=== PATIENT | female | born 1955 | race Caucasian/White ===

== ENCOUNTER 2025-06-02 14:27 | Outpatient (AMB) | payer OTHER, SELFPAY ==
--- OUTSIDE RECORDS SUMMARY | 2024-10-22 11:13 | XMS_ITS ---
Author Organization - [facility] Address [address] [place] [address] Care Team Providers Care Farmworker [employer] Name Role Phone Olivia Hussein Unavailable [phone] REASON FOR VISIT *Care Plan Update Encounters Encounter Location Date Provider Diagnosis - [facility] [address] [facility] [address] [place] [address] 10/22/2024 Olivia Hussein Plan Of Treatment No Information Progress Notes * Shea AYALAJaimeeB: 6 (69 yo F)Acc No.[id number]:10/22/2024 Care Plan Update Patient: Xin TREJO Provider: Shreya Hussein NP :1955 A ge:69 Y S ex:Female Date:10/22/2024 Address:[address] [place], [place] [id number] Subjective: * Chief Complaints: * 1 . *Care Plan Update. * Medical History: Objective: * Vitals: Assessment: Plan: * Treatment: Care Plan: * Problems: * Billing Information: Care Plan Details* * * Electronic signature of Beto Hussein NP on 06/02/2025 at 06:46 PM EST Sign off status: Pending * Provider: Shreya Hussein NP Date: 0 10/22/2024 Generated for Omer regan/Kori/[employer]gen on: 08/03/2024 06:46 PM EST
--- NOTE | 2025-06-02 14:47 | MHC.OFFVIS ---
Intake Visit Reasons: Meningioma Allergies amoxicillin Allergy (Unknown, Verified 06/02/25 15:05) Unknown bupropion (From Wellbutrin) Allergy (Unknown, Verified 06/02/25 15:05) Unknown levofloxacin (From Levaquin) Allergy (Unknown, Verified 06/02/25 15:05) Unknown oxybutynin Allergy (Unknown, Verified 06/02/25 15:05) Unknown paclitaxel (From Taxol) Allergy (Unknown, Verified 06/02/25 15:05) Unknown HPI Comments Details: The patient is a 69 year old female presenting for a new patient neurology consultation for evaluation of memory problems. She reports the onset of memory issues a few years ago, which she feels may have started worsening after her meningioma surgery. She describes difficulty with short-term memory, such as forgetting the purpose of an action, and occasional word-finding difficulties. 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 The patient has a history of a meningioma, for which she underwent a craniotomy years ago at [facility]. She recalls having some transient memory and speech difficulties post-operatively which improved. A recent brain MRI was performed at [facility] to monitor for recurrence, but the imaging report is not available for review. Her other medical history includes migraines. The patient is establishing care due to her previous neurologist's halfway and staffing shortages at the prior clinic. She denies any alcohol use for years. She also reports using oxygen at times. Review of Systems Narrative Constitutional:?No fever, chills, fatigue, weight loss, or night sweats. HEENT:? Complain of sinus problems Cardiovascular:?No chest pain, palpitations, orthopnea, PND, or leg swelling. Respiratory:? Complain of shortness of breath Gastrointestinal:?No nausea, vomiting, abdominal pain, diarrhea, or constipation. Genitourinary:? Complain of urinary frequency. Musculoskeletal:? Complain of back pain neck pain and joint pains Neurological:? Complain of difficulty walking, weakness, numbness and tingling, memory problems, headaches and dizziness. Psychiatric:?No anxiety, depression, mood swings, sleep disturbance, or hallucinations. Endocrine:?No heat/cold intolerance, polydipsia, polyuria, or hair/skin changes. Hematologic/Lymphatic:?No easy bruising, bleeding, or lymphadenopathy. Integumentary (Skin):?No rash, lesions, itching, or color changes. Allergic/Immunologic:?No seasonal allergies, hives, or recurrent infections. Physical Exam Neuro Other: Mental Status: Alert and oriented to person, place, and time. Normal attention. Normal spontaneous speech, fluency, and comprehension. Cranial Nerves: CN II: Visual serna full to confrontation, visual acuity intact. CN III, IV, : Pupils equal, round, reactive to light and accommodation. Extraocular movements are normal. CN V: Facial sensation is normal. CN VII: Facial movements symmetrical. CN VIII: Hearing intact to bedside conversation is normal. CN IX, X: Palate elevates symmetrically. CN XI: Shoulder shrug and head turn symmetrical. CN XII: Tongue midline without atrophy or fasciculations. Motor: Bulk and tone normal in all extremities. No significant muscle weakness in arms and legs. No drift. Reflexes: Deep tendon reflexes 2+ and symmetric. Plantar response down-going bilaterally. Coordination: Nacyyg-ku-hlid and jmqr-nm-ldlz testing normal. No dysmetria. Gait and Station: No obvious gait abnormality. No ataxia or instability. Sensory: Intact to light touch, pinprick, and vibration. Romberg is negative. Extrapyramidal: Full facial expressions and blinking. No rigidity. Movements are appropriate with no tremor or abnormality. Speech: Normal; no dysarthria or tremor. Assessment & Plan Assessment & Plan (1) Meningioma: Code(s): D32.9 - Benign neoplasm of meninges, unspecified Category: Medical (2) Cognitive dysfunction: Code(s): F09 - Unspecified mental disorder due to known physiological condition Category: Medical Plan Impression: a: Reported h/o cerebral meningioma treated with craniotomy years ago b: Cognitive dysfunction during recent years c: She had an MRI done recently but did not bring the CD and no report was sent Rec: a: Try to get MRI CD b: EEG c: Labs I have discussed with the patient the plan to evaluate her memory concerns. I informed her that we would order blood tests and an EEG, and that a follow-up appointment would be scheduled after these are completed. I emphasized the importance of her obtaining the CD of her recent brain MRI from [facility] to bring to the next visit for review. In response to her concerns about accessibility, I informed her of the availability of granite worker parking. Orders: Orders Lyme IgG/IgM w/reflex to WB Today F09 - Unspecified mental disorder due to known physiological condition Vitamin B12 and Folate Today F09 - Unspecified mental disorder due to known physiological condition EEG Routine Today G40.909 - Epilepsy, unspecified, not intractable, without status epilepticus Coding Level of Care Code New Pt Level 4 (03986) Diagnoses Meningioma D32.9 Cognitive dysfunction F09
--- OUTSIDE RECORDS SUMMARY | 2025-06-02 18:45 | XMS_ITS | Encounter Summary ---
Author Organization [employer] Address [address] [place] [address] Care Team Providers Care Or First Assist Registered Nurse Name Role Phone Helen Chenline Unavailable Unavailable Ameena Tellez DO Primary Care Provider [phone] Encounter Details Date Type Department Care Team (Late st Contact Info) Description 01/18/2025 Orders Only [facility] [address] [place] [address] Ameena Tellez DO [address] [place] [address] Social History Tobacco Use Types Packs/Day Years Used Date Smoking Tobacco: Former Cigarettes 1 996 - 02/25/2022 Passive Smoke Exposure: Past Smokeless Tobacco: Never Comments:Smoked a 1/2 a pack to a pack a day Alcohol Use Standard Drinks/Week Comments Never 0 (1 standard drink = 0.6 oz pur e alcohol) Alcohol Answer Date Recorded How often do you have a drink containing alcohol ? 0 01/13/2025 Average Number of Drinks Not on file 025 How often do you have six or more drinks on one occasion? 0 01/13/2025 Depression Answer Date Recorded Patient Health Questionnaire-9 Score 0 01/13/2025 Patient Health Questionnaire-9 Score 0 01/13/2025 Last PHQ-9: Questionnaire Data Not on file 0 01/13/2025 Housing Stability Answer Date Recorded What is your housing situation today? I have nava hackett 04/02/[address] you li ve. Do you have problems with any of the following? None of the above 04/02/2023 Food Insecurity Answer Date Recorded Within the past 12 months, y ou worried that your food would run out before you got money to buy more: Often true 2024 Within the past 12 months,th e food you bought just didn't last and you didn't have enough money to get more: Sometimes True 01/13/2025 Transportation Answer Date Recorded In the past 12 months, has l ack of transportation kept you from medical appts, meetings, work or from getting things needed for daily living? No 02/07/2024 Intimate Partner Violence Answer Date R ecorded Within the last year, have y ou been afraid of your partner or ex-partner? 2 02/07/2024 Within the last year, have y ou been humiliated or emotionally abused in other ways by your partner or ex-partner? 2 Within the last year, have y ou been kicked, hit, slapped, or otherwise physically hurt by your partner or ex-partner? 2 02/07/2024 Within the last year, have y ou been raped or forced to have any kind of sexual activity by your partner or ex-partner? 2 02/07/2024 Utilities Answer Date Recorded In the past 12 months, has t he electric, gas, oil or water company threatened to shut off services in your home? No 04/02/2023 Depression Answer Date Recorded Patient Health Questionnaire-2 Score 0 01/13/2025 Internet Access Answer Date Recorded Internet Access Q1 Yes 02/18/2024 Internet Access Q2 Not on file 02/18/2024 Education Answer Date Recorded What is the highest level of school you have completed or the highest degree you have received? Some college, no degree 11/05/2023 Comments No Sex and Gender Information Value Date Recorded Sex Assigned at Female 05/29/2022 3:31 PM EST Legal Sex Female 5:34 PM EDT Gender Identity Female 05/30/2022 3:11 PM EST Sexual Orientation Straight 05/29/2022 3: 31 PM EST Occupation Industry Job Start Date Job End Date retired/disabled Not on file Not on file Not on file documented as of this encounter Plan of Treatment Upcoming Encounters Date Type Department Care Team (Late st Contact Info) Description 07/13/2025 3:15 PM EST Office Visit [facility] MEDICAL [address] [place], [place] [id number] Ameena Tellez, DO [address] [place] [address] documented as of this encounter Procedures Procedure Name Priority Date/Time Associated Diagnosis Comments BD DEXA AXIAL Routine 01/20/2025 2:30 PM EDT MRI LUMBAR SPINE WO CONTRAST Routine 10/20/2021 1:01 PM EDT MRI CERVICAL SPINE WO CONTRAST Routine 04/27/2020 1:02 PM EST documented in this encounter Results * BD DEXA Axial (01/20/2025 2:30 PM EDT) Anatomical Region Laterality Modality Body Radiographic Layla ging 01/20/2025 2:30 PM EDT Narrative 02/01/2025 7:40 AM EDT Name:VON QUINTANILLA Age:69 years Sex:Female Ethnicity:White Date of :1955 Reason: M85.80 OSTEOPENIA UNSPECIFIED INCLUDE RIGHT HIP; Clinical Question(s): Other: Referring Provider:Ameena Tellez Study:Dexa Bone Density (Axial) Bone Density: Region BMD T-Score Z-Score Classification AP Spine 0.946 -0.3 1.6 Normal TOTAL HIP 0.723 -1.8 -0.4 Osteopenia FEM NECK 0.633 -1.9 -0.2 Osteopenia 1/3 Forearm 0.618 -1.3 0.7 Osteopenia 10-year Fracture Risk: Fracture Risk Not Reported: FRAX not reported because: Treated for osteoporosis RATE OF CHANGE(SPINE): BMD values have decreased 3.5% from previous BMD values have decreased 7.7% from baseline Impression: The patient has osteopenia as determined by WHO criteria. WSN: [id number] Ordering Physician: Ameena Tellez Dictated By: Gerry Lezama MD Dictated Date/Time: 02/01/25 7:36 am Reviewed By: Gerry Lezama MD Signed By: Gerry Lezama MD Signed Date/Time: 02/01/25 7:36 am Transcribed By: MAGEN Transcribed Date/Time: 02/01/25 7:35 am Procedure Note Donotuseinterpreter, Image - 02/01/2025 Name:VON QUINTANILLA Age:69 years Sex:Female Ethnicity:White Date of :1955 Reason: M85.80 OSTEOPENIA UNSPECIFIED INCLUDE RIGHT HIP; ClinicalQuestion(s): Other: Referring Provider:Ameena Tellez Study:Dexa Bone Density (Axial) Bone Density: Region BMD T-Score Z-Score Classification AP Spine 0.946 -0.3 1.6 Normal TOTAL HIP 0.723 -1.8 -0.4 Osteopenia FEM NECK 0.633 -1.9 -0.2 Osteopenia 1/3 Forearm 0.618 -1.3 0.7 Osteopenia 10-year Fracture Risk: Fracture Risk Not Reported: FRAX not reported because: Treated for osteoporosis RATE OF CHANGE(SPINE): BMD values have decreased 3.5% from previous BMD values have decreased 7.7% from baseline Impression: The patient has osteopenia as determined by WHO criteria. WSN: [id number] Ordering Physician: Ameena Tellez Dictated By: Gerry Lezama MD Dictated Date/Time: 02/01/25 7:36 am Reviewed By: Gerry Lezama MD Signed By: Gerry Lezama MD Signed Date/Time: 02/01/25 7:36 am Transcribed By: MAGEN Transcribed Date/Time: 02/01/25 7:35 am us Ameena Tellez DO IMG DXA PROCEDURES Final Resul t * MRI LUMBAR SPINE WO CONTRAST (10/20/2021 1:01 PM EDT) Anatomical Region Laterality Modality Magnetic Resonan ce us Ameena Tellez DO IMG MRI PROCEDURES Final Resul t * MRI CERVICAL SPINE WO CONTRAST (04/27/2020 1:02 PM EST) Anatomical Region Laterality Modality Magnetic Resonan ce us Ameena Tellez DO IMG MRI PROCEDURES Final Resul t documented in this encounter Visit Diagnoses Not on filedocumented in this encounter Additional Health Concerns Assessment Noted Time PHQ-9 Depression Total Score: 0 01/14/20 25 4:04 PM EDT documented as of this encounter Care Teams Or First Assist Registered Nurse Relationship Specialty Start Date End Date Ameena Tellez DO [address] [place] [address] PCP - General Family Medicine 02/07/24 Ivelisse Chen Community Health Worker 10/23/22 documented as of this encounter
--- OUTSIDE RECORDS SUMMARY | 2025-06-02 18:45 | XMS_ITS | Encounter Summary ---
Author Organization [employer] Address [address] [place] [address] Care Team Providers Care Dairy Inspector Name Role Phone Ivelisse Chen Unavailable Unavailable King Ameena Primary Care Provider [phone] Encounter Details Date Type Department Care Team (Late st Contact Info) Description 03/13/2024 Orders Only [place] [facility] MEDICAL [address] [place] [address] Gisela Pulido FNP Palpitations Social History Tobacco Use Types Packs/Day Years [...] have a drink containing alcohol ? 0 02/07/2024 How many drinks containing a lcohol do you have on a typical day when you are drinking? 0 02/07/2024 How often do you have six or more drinks on one occasion? 0 02/07/2024 Housing Stability Answer Date Recorded What is your housing situation today? I have nava hackett 04/02/[address] you li ve. Do you have problems with any of the following? None of the above 04/02/2023 Food Insecurity Answer Date Recorded Within the past 12 months, y ou worried that your food would run out before you got money to buy more: Never True 02/07/2024 Within the past 12 months,th e food you bought just didn't last and you didn't have enough money to get more: Never True Transportation Answer Date Recorded In the past [...] Date Recorded Patient Health Questionnaire-2 Score 0 02/07/2024 Internet Access Answer Date Recorded Internet Access [...] Description 07/13/2025 3:15 PM EST Office Visit [place] [facility] MEDICAL [address] [place] [address] Ameena Tellez DO [address] [place] [address] documented as of this encounter Procedures Procedure Name Priority Date/Time Associated Diagnosis Comments TRANSTHORACIC ECHO (TTE) COMPLETE Routine 024 Palpitations HOLTER MONITOR - 72 HOUR Routine 01/18/2024 Palpitations documented in this encounter Results * Transthoracic Echo (TTE) Complete (04/01/2024) [facility] CV ECHO PROCEDURES Fin al Result * Holter monitor - 72 hour (01/18/2024) [facility] CV CARDIAC SERVICES MT OCEDURES Final Result documented in this encounter Visit Diagnoses Diagnosis Palpitations documented in this encounter Care Teams Dairy Inspector Relationship Specialty Start Date End Date Ameena Tellez DO [address] [place] [address] PCP - General Family Medicine 02/07/24 Ivelisse Chen Community Health Worker 10/23/22 documented as of this encounter
--- OUTSIDE RECORDS SUMMARY | 2025-06-02 18:45 | XMS_ITS | Encounter Summary ---
Author Organization [employer] Address [address] [place] [address] Care Team Providers Care Guest Relations Executive Name Role Phone Helen Chenline Unavailable Unavailable Ameena Tellez DO Primary Care Provider [phone] Reason for Visit * Reason Comments Med Refill Encounter Details Date Type Department Care Team (Late st Contact Info) Description 02/22/2024 Refill [place] [facility] MEDICAL [address] [place] [address] Aliya Floyd MD [address] [place] [address] Gastroesophageal reflux disease with esophagitis, unspecified whether hemorrhage Social History Tobacco Use Types Packs/Day Years [...] 07/13/2025 3:15 PM EST Office Visit [place] [facility] MED[facility] [address] [place] [address] Ameena Tellez DO [address] [place] [address] documented as of this encounter Visit Diagnoses Diagnosis Gastroesophageal reflux disease with esophagitis, unspecified whether hemorrhage documented in this encounter Care Teams Guest Relations Executive Relationship Specialty Start Date End Date Ameena Tellez DO [address] [place] [address] PCP - General Family Medicine 02/07/24 Ivelisse Chen Community Health Worker 10/23/22 documented as of this encounter
--- OUTSIDE RECORDS SUMMARY | 2025-06-02 18:45 | XMS_ITS | Encounter Summary ---
Author Organization [employer] [facility] Address [address] [place] [address] Care Team Providers Care Pie Filler Name Role Phone Gisela Pulido Primary Care Provider Unavailable Ivelisse Chen Unavailable Unavailable Ameena Tellez DO Primary Care Provider [phone] Encounter Details Date Type Department Care Team (Late st Contact Info) Description 05/15/2022 Abstract [facility] OPTOMETRY [address] [place] [address] Aliya Kinsey RMA Social History Tobacco Use Types Packs/Day Years Used Date Smoking Tobacco: Former Cigarettes 1 996 - 02/25/2022 Comments:Smoked a 1/2 a pack to a pack a day Comments Unknown Sex and Gender Information Value Date Recorded Sex Assigned at Female 05/29/2022 3:31 PM EST Legal Sex Female 5:34 PM EDT Gender Identity Female 05/30/2022 3:11 PM EST Sexual Orientation Straight 05/29/2022 3: 31 PM EST documented as of this encounter Plan of Treatment Upcoming Encounters Date Type Department Care Team (Late st Contact Info) Description 07/13/2025 3:15 PM EST Office Visit [facility] MEDICAL [address] [place] [address] Ameena Tellez DO [address] [place] [address] documented as of this encounter Visit Diagnoses Not on filedocumented in this encounter Care Teams Pie Filler Relationship Specialty Start Date End Date Gisela Pulido FNP PCP - General Family Medicine 05/26/22 02/06/24 Ameena Tellez DO [address] [place] [address] PCP - General Family Medicine 02/07/24 Ivelisse Chen Community Health Worker 10/23/22 documented as of this encounter
--- OUTSIDE RECORDS SUMMARY | 2025-06-02 18:45 | XMS_ITS | Encounter Summary ---
Author Organization [employer] Address [address] [place] [address] Care Team Providers Care Adaptive Physical Educator Name Role Phone Helen Chenline Unavailable Unavailable Ameena Tellez DO Primary Care Provider Reason for Visit * Reason Comments Med Refill Encounter Details Date Type Department Care Team (Late st Contact Info) Description 12/23/2024 Refill [place] [facility] MEDICAL [address] [place], [place] [id number] Ameena Tellez DO [address] [place] [address] Benign paroxysmal positional vertigo, unspecified laterality; Gastroesophageal reflux disease with esophagitis, unspecified whether [...] on file documented as of this encounter Miscellaneous Notes * Telephone Encounter - JADE Mayfield - 12/23/2024 11:29 AM EDT Sent on 12/10/24 documented in this encounter Plan of Treatment Upcoming Encounters Date Type Department Care Team (Late st Contact Info) Description 07/13/2025 3:15 PM EST Office Visit [facility] MEDICAL [address] [place] [address] Ameena Tellez DO [address] [place] [address] documented as of this encounter Visit Diagnoses Diagnosis Benign paroxysmal positional vertigo, unspecified laterality Gastroesophageal reflux disease with esophagitis, unspecified whether hemorrhage documented in this encounter Care Teams Adaptive Physical Educator Relationship Specialty Start Date End Date Ameena Tellez DO [address] [place] [address] PCP - General Family Medicine 02/07/24 Ivelisse Chen Community Health Worker 10/23/22 documented as of this encounter
--- OUTSIDE RECORDS SUMMARY | 2025-06-02 18:45 | XMS_ITS | Encounter Summary ---
Author Organization [employer] Address [address] [place] [address] Care Team Providers Care Print Line Supervisor Name Role Phone Helen Chenline Unavailable Unavailable Ameena Tellez DO Primary Care Provider [phone] Reason for Visit * Reason Comments Med Refill Encounter Details Date Type Department Care Team (Late st Contact Info) Description 02/27/2024 Refill [place] [facility] MEDICAL [address] [place] [address] Aliya Floyd MD [address] [place] [address] Gastroesophageal reflux disease with esophagitis, unspecified whether [...] t he electric, gas, oil or water [employer] threatened to shut off services in your [...] Miscellaneous Notes * Telephone Encounter - JADE Uribe - 02/28/2024 11:28 AM EDT Spoke to the [facility] pharmacy they stated if it has no refills the default system just automatically keeps sending them. She did state that they send a reminder right after the the meds are sent tothe patient as they do monthly prefills. * Telephone Encounter - Ameena Tellez DO - 02/27/2024 10:08 PM EDT RX was sent 02/19/24 and this is the third request since then, please clarify with pharmacy why refill is being requested so soon documented in this encounter Plan of Treatment Upcoming Encounters Date Type Department Care Team (Late st Contact Info) Description 07/13/2025 3:15 PM EST Office Visit [facility] MEDICAL [address] [place] [address] Ameena Tellez DO [address] [place] [address] documented as of this encounter Visit Diagnoses Diagnosis Gastroesophageal reflux disease with esophagitis, unspecified whether hemorrhage documented in this encounter Care Teams Print Line Supervisor Relationship Specialty Start Date End Date Ameena Tellez DO [address] [place] [address] PCP - General Family Medicine 02/07/24 Ivelisse Chen Community Health Worker 10/23/22 documented as of this encounter
--- OUTSIDE RECORDS SUMMARY | 2025-06-02 18:45 | XMS_ITS | Encounter Summary ---
Author Organization [employer] Address [address] [facility] [address] [place] [address] Care Team Providers Care Electrocardiograph Operator Name Role Phone Helen Chenline Unavailable Unavailable Ameena Tellez DO Primary Care Provider [phone] Reason for Visit * Reason Comments Med Refill Encounter Details Date Type Department Care Team (Late st Contact Info) Description 02/03/2025 Refill [place] MED[facility] [address] [place], [place] [id number] Ameena Tellez DO [address] [place] [address] Gastroesophageal reflux disease with esophagitis, unspecified whether hemorrhage; Benign paroxysmal positional vertigo, unspecified laterality Social History Tobacco Use Types Packs/Day Years [...] Description 07/13/2025 3:15 PM EST Office Visit [facility] MED[facility] [address] [place] [address] Ameena Tellez DO [address] [place] [address] documented as of this encounter Visit Diagnoses Diagnosis Gastroesophageal reflux disease with esophagitis, unspecified whether hemorrhage Benign paroxysmal positional vertigo, unspecified laterality documented in this encounter Additional Health Concerns Assessment Noted Time PHQ-9 Depression Total Score: 0 01/14/20 25 4:04 PM EDT documented as of this encounter Care Teams Electrocardiograph Operator Relationship Specialty Start Date End Date Ameena Tellez DO [address] [place] [address] PCP - General Family Medicine 02/07/24 Ivelisse Chen Community Health Worker 10/23/22 documented as of this encounter
--- OUTSIDE RECORDS SUMMARY | 2025-06-02 18:45 | XMS_ITS | Clinical Summary ---
Author Organization [facility] [address] [facility] Address [address] [place] [address] Phone Care Team Providers Care Curtain Fitter Name Role Phone Ameena Tellez Gregory LICONA Primary Care Provider [phone] Allergies Active Allergy Reactions Criticality Noted Date Comments Amoxicillin Low 05/04/2022 Other Reaction(s): thrush and hives Other reaction(s): thrush, blisters in mouth Ditropan Swelling 01/12/2025 Levofloxacin Hives High 05/04/2022 Other reaction(s): Unknown Oxybutynin Other,Unknown High 05/04/2022 Other reaction(s): throat swelled up, tongue swelling, burnt, lack of saliva Paclitaxel 01/12/2025 Bupropion Hcl 01/12/2025 Medications atorvastatin (LIPITOR) 20 mg tablet TAKE ONE TABLET BY MOUTH AT BEDTIME ^1R4 0 Active gabapentin (NEURONTIN) 400 mg capsule TAKE TWO CAPSULES BY MOUTH THREE TIMES A DAY ^2R1,2R2,2R4 5 Active esomeprazole (NexIUM) [address] capsule Take 1 capsule (40 mg total) by mouth. 8 Active meclizine (ANTIVERT) 25 mg tablet TAKE ONE TABLET BY MOUTH THREE TIMES A DAY ^1R1,1R2,1R4 2 Active montelukast (SINGULAIR) 10 mg tablet TAKE ONE TABLET BY MOUTH EVERY EVENING ^1R4 5 Active albuterol HFA (PROAIR HFA ; PROVENTIL HFA ; VENTOLIN HFA) 90 mcg/actuation inhaler See Instructions, INHALE 2 PUFFS INTO THE LUNGS FOUR TIMES DAILY NEEDED, # 18 Gm, 5 Refills, Maintenance, 04/19/23 10:40:00 EDT, [facility], cm, 04/10/23 13:29:00 EDT, Height, 73.8, kg, 05/31/21 13:49:00 EST, Dry Weight 3 Active donepeziL (ARICEPT) 5 mg tablet Take 1 tablet (5 mg total) by mouth. 3 Active DULoxetine (CYMBALTA) [address] capsule TAKE ONE CAPSULE BY MOUTH TWO TIMES A DAY ^1R1,1R4 5 Active calcium citrate-vitamin D3 200 mg-6.25 mcg (250 unit) tablet 4 Active CALCIUM CITRATE-VITAMIN D3 ORAL 4 Active azelastine (OPTIVAR) 0.05 % ophthalmic solution Administer 1 drop into both eyes 2 times daily. 5 12/04/19 26 Active traZODone (DESYREL) 150 mg tablet 5 Active nicotine (NICODERM CQ) 21 mg/[address] 1 patch on the skin daily. 4 Active albuterol 2.5 mg /3 mL (0.083 %) nebulizer solution 3 mL (2.5 mg total) Every 4 hours as needed. 4 Active linaCLOtide (Linzess) 72 mcg capsule Take 1 capsule (72 mcg total) by mouth. 4 Active fluticasone propionate (FLONASE) 50 mcg/actuation nasal spray Administer 2 sprays into each nostril daily. 5 10/14/19 26 Active estradioL (ESTRACE) 0.01 % (0.1 mg/gram) vaginal cream Insert 1 g into the vagina. 2 Active vibegron (Gemtesa) 75 mg tablet tablet Take 1 tablet (75 mg total) by mouth 1 (one) time each day. Active Oxygen Therapy via Nasal Cannula (O2) gas Inhale continuously. via nasal canula Active linaCLOtide (Linzess) 72 mcg capsuleIndication s:Chronic constipation Take 1 capsule (72 mcg total) by mouth 1 (one) time each day before breakfast. 90 each 3 5 01/13/20 26 Active Active Problems Problem Noted Date Diagnosed Date Peripheral neuropathy 01/12/2025 Fibromyalgia 01/12/2025 Vertigo 01/12/2025 HLD (hyperlipidemia) 01/12/2025 Pulmonary emphysema 01/12/2025 Depression 01/12/2025 Anxiety 01/12/2025 Breast cancer 01/12/2025 GENESIS (obstructive sleep apnea) 01/12/2025 Surgical History Surgery Date Site/Laterality Comments COLONOSCOPY 07/19/2021 - 08/15/2021 fair prep, tics, rhoids, (Dr. Rouse) APPENDECTOMY ESOPHAGOGASTRODUODENOSCOPY 07/19/2021 - 08/15/2021 unremarkable(Dr. Rouse) COLONOSCOPY 09/17/2015 - 10/16/2015 Hyperplastic polyp, tics, internal hemorrhoids (5 YR) Dr. Rouse ESOPHAGOGASTRODUODENOSCOPY 09/17/2015 - 10/16/2015 Unremarkable ESOPHAGOGASTRODUODENOSCOPY 11/17/2019 - 12/16/2019 Unremarkable including gastric and esophageal biopsies (Dr. Rouse) Family History Medical History Relation Name Comments Colon cancer Mother's Sister Colon polyps Sister Relation Name Status Comments Mother's Sister Sister Social History Tobacco Use Types Packs/Day Years Used Date Smoking Tobacco: Every Day Cigarettes Smokeless Tobacco: Current Tobacco Cessation:Ready to Q uit: Not Asked; Counseling Given: Not Answered Alcohol Use Standard Drinks/Week Comments Yes 0 (1 standard drink = 0.6 oz pur e alcohol) Comments Unknown Sex and Gender Information Value Date Recorded Sex Assigned at Not on file Legal Sex Female 2:35 AM EST Gender Identity Not on file Sexual Orientation Not on file Last Filed Vital Signs Vital Sign Reading Time Taken Comments Blood Pressure - - Pulse - - Temperature - - Respiratory Rate - - Oxygen Saturation - - Inhaled Oxygen Concentration - - Weight 66.6 kg (146 lb 12.8 oz) 01/12/2025 1:09 PM EDT Height 162.6 cm (5' 4 ) 01/12/2025 1:09 PM EDT Body Mass Index 25.2 01/12/2025 1:09 PM EDT Plan of Treatment Health Maintenance Due Date Last Done Comments Breast Cancer Screening 1955 Colorectal Cancer Screening: Colonoscopy 1955 Depression Screening 06/18/2024 Cholesterol Screening (Lipid Panel) 09/05/2024 Falls Risk Assessment 09/05/2024 Hepatitis C Screening 09/05/2024 Osteoporosis Screening (Bone Density Screening) 09/05/2024 Social Influencers of Health Screening 09/05/2024 COVID-19 Vaccine ( season) 2025 07/17/2024, 03/27/2023, 01/27/2022, Additional history exists Influenza Vaccine (#1) 2025 , 03/27/2023, 01/27/2022, Additional history exists DTaP,Tdap,and Td Vaccines (4 - Td or Tdap) 03/13/2027 03/13/2017, 11/05/2007, 11/05/2007 Zoster Vaccines Completed 02/06/2018, 10/19/2017 MMR Vaccines Aged Out 11/05/2018 No longer eligi ble based on patient's age to complete this topic Pneumococcal Vaccine: 50+ Years Completed 05/17/2023, 03/29/2010 RSV Immunization Adult Patients Completed 05/17/2023 Hepatitis A Vaccines Aged Out 01/12/2025, 07/17/19 25 No longer eligible based on patient's age to complete this topic HIB Vaccines Aged Out No longer eligi ble based on patient's age to complete this topic HPV Vaccines Aged Out No longer eligi ble based on patient's age to complete this topic Hepatitis B Vaccines Aged Out No long er eligible based on patient's age to complete this topic IPV Vaccines Aged Out No longer eligi ble based on patient's age to complete this topic Meningococcal ACWY Vaccine Aged Out N o longer eligible based on patient's age to complete this topic Meningococcal B Vaccine Aged Out No l onger eligible based on patient's age to complete this topic RSV Immunization Patients Under 20 months Aged Out No longer eligible based on patient's age to complete this topic Varicella Vaccines Aged Out No longer eligible based on patient's age to complete this topic Insurance [place]ICAID - [place] [facility] Member Subscriber Plan / Payer (Ef fective 2021-Present) Name:VON QUINTANILLA Relation to Subscriber:Self Name:Von Quintanilla Payer ID:[id number] Group ID:[id number] Type:Not on file Address: [address] [place] [address] Care Teams Curtain Fitter Relationship Specialty Start Date End Date Ameena Tellez DO [address] [place] [id number] PCP - General Family Medicine 09/04/24
--- OUTSIDE RECORDS SUMMARY | 2025-06-02 18:46 | XMS_ITS | Encounter Summary ---
Author Organization [employer] Address [address] [place] [id number] Care Team Providers Care Cuff Runner Name Role Phone Gisela Pulido Primary Care Provider Unavailable Ivelisse Chen Unavailable Unavailable Ameena Tellez DO Primary Care Provider [phone] Encounter Details Date Type Department Care Team (Latest Contact Info) Description 04/21/2021 Abstract [facility] Dental, Provider, DDS Social History Tobacco Use Types Packs/Day Years Used Date Smoking Tobacco: Never Assessed Comments Unknown Sex and Gender Information Value [...] Description 07/13/2025 3:15 PM EST Office Visit [facility] MEDICAL [address] [place] [address] Ameena Tellez DO [address] [place] [address] documented as of this encounter Visit Diagnoses Not on filedocumented in this encounter Care Teams Cuff Runner Relationship Specialty Start Date End Date Gisela Pulido FNP PCP - General Family Medicine 05/26/22 02/06/24 Ameena Tellez DO [address] [place] [address] PCP - General Family Medicine 02/07/24 Ivelisse Chen Community Health Worker 10/23/22 documented as of this encounter
--- OUTSIDE RECORDS SUMMARY | 2025-06-02 18:46 | XMS_ITS | Encounter Summary ---
Author Organization [employer] Address [address] [facility] [address] [place] [address] Care Team Providers Care Laboratory Technology Teacher Name Role Phone Helen Chenline Unavailable Unavailable Ameena Tellez DO Primary Care Provider Reason for Visit * Reason Comments Med Refill Encounter Details Date Type Department Care Team (Late st Contact Info) Description 04/09/2025 Refill [place] [facility] MED[facility] [address] [place] [address] Ameena Tellez DO [address] [place] [address] Benign paroxysmal positional vertigo, unspecified laterality; Gastroesophageal [...] encounter Miscellaneous Notes * Telephone Encounter - Guillermina Mathis MA - 04/09/2025 9:18 AM EDT duplicates documented in this encounter Plan of Treatment Upcoming Encounters Date Type Department Care Team (Late st Contact Info) Description 07/13/2025 3:15 PM EST Office Visit [facility] MEDICAL [address] [place] [address] Ameena Tellez DO [address] [place] [address] documented as of this encounter Visit Diagnoses Diagnosis Benign paroxysmal positional vertigo, unspecified laterality Gastroesophageal reflux disease with esophagitis, unspecified whether hemorrhage documented in this encounter Additional Health Concerns Assessment Noted Time PHQ-9 Depression Total Score: 0 01/14/20 25 4:04 PM EDT documented as of this encounter Care Teams Laboratory Technology Teacher Relationship Specialty Start Date End Date Ameena Tellez DO [address] [place] [address] PCP - General Family Medicine 02/07/24 Ivelisse Chen Community Health Worker 10/23/22 documented as of this encounter
--- OUTSIDE RECORDS SUMMARY | 2025-06-02 18:46 | XMS_ITS | Patient Health Record ---
Author Organization - [facility] Practice Address [address] [place] [address] Care Team Providers Care Neon Tube Bender Name Role Phone Olivia Hussein Unavailable [phone] JONELLE WHALEN Unavailable [phone] Mallory Loyola Unavailable [phone] Jose D Chino Unavailable [phone] Jin Ronquillo Unavailable Karin Mathis Unavailable [phone] Allergies Allergen (clinical drug ingredient) Drug/Non Drug Allergy documented on EMR Reaction Allergy Type Onset Date Status Levaquin anaphylaxis Drug Allergy Activ e amoxicillin Amoxicillin hives Drug Allergy Act robert oxybutynin Oxybutynin anaphylaxis Drug Allergy Act robert Reason For Referral No Information Medications Medication SIG (Take, Route, Fr equency, Duration) Notes Start Date End Date Status Albuterol Sulfate (2.5 MG/3ML) 0.083% 3 mL as needed Inhalation every 6 hrs; Duration: 6 days sob/wheezing Active Folic Acid 400 MCG 1 tablet Oral Once a day; Duration: 28 days supplement Active Donepezil HCl 5 MG 1 tablet at bedtime Oral Once a day memory loss Active Vitamin C 500 MG 1 tablet Oral Once a day; Duration: 28 days supplement Active Ferrous Gluconate 240 (27 Fe) MG 1 tablet Oral daily; Duration: 28 days anemia Active oxyCODONE HCl 5 MG 1 tablet as needed Orally every 8 hrs Pain Active Meclizine HCl 25 MG 1 tablet Oral three times a day vertigo Active [place] Calcium/Vitamin D 200-6.25 MG-MCG 1 tablet Oral Twice a day; Duration: 28 days vitamin supplement Active Albuterol Sulfate 2.5 MG/0.5ML as directed Inhalation As needed SOB/wheezing Active Vitamin C 500 MG 1 tablet Orally Once a day vitamin supplement Active Gabapentin 400 MG 2 tablets Oral three times a day 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 Active Esomeprazole Magnesium 40 MG 1 capsule Orally Once a day heart burn Active Sucralfate 1 GM 1 tablet on an empty stomach Oral three times a day As needed acid reflux Active Tylenol 325 MG 1 tablet as needed Orally every 6 hrs As needed for pain Active Atorvastatin Calcium 20 MG 1 tablet Oral Once a day HLD Active Ventolin HFA 108 (90 Base) MCG/ACT 1 puff as needed Inhalation every 4 hrs As needed SOB/wheezing Active Fluticasone Propionate 50 MCG/ACT 1 spray in each nostril Nasally Twice a day Active Montelukast Sodium 10 MG 1 tablet Oral Once a day allergies Active Linzess 72 MCG 1 capsule at least 30 minutes before a meal Oral Once a day As needed constipation Active traZODone HCl 100 MG 1 tablet Oral Once a day insomnia Active DULoxetine HCl 30 MG 1 capsule Oral twice a day depression/anxiety Active Gemtesa 75 MG 1 tablet Oral at bedtime overactive bladder Active Bevespi Aerosphere 9-4.8 MCG/ACT 2 puffs Inhalation Twice a day; Duration: 30 days copd Active Nicotine 21 MG/24HR 1 patch to skin Transdermal Once a day; Duration: 28 days smoking cessation Active QUEtiapine Fumarate 25 MG 1 tablet at bedtime Oral Once a day; Duration: 28 days insomnia Active Social History Tobacco Use: Social History Observation Description Date Details (start date - stop date) Former Smoker NA - 03/26/2023 Tobacco Control (Standard) Question Answer Notes Tobacco use: Former smoker When did you stop smoking? 03/26/2023 How long has it been since you last smoked? 6-12 months AUDIT-C (Standard) Question Answer Notes Did you have a drink containing alcohol in the p ast year? No Points 0 Interpretation Negative Problems Problem Type SNOMED Code ICD Code Onset Dates Problem Status W/U Status Risk Notes Problem Chronic respiratory failure (56314679) Chronic hypoxic respiratory failure (J96.11) Active confirmed Problem Primary osteoarthritis (057234050) Primary osteoarthritis involving multiple joints (M15.0) Active confirmed Problem Lives alone (086081171) Problem related to living alone (Z60.2) Active confirmed Problem Dependence on continuous supplemental oxygen (52852472878848) Dependence on continuous supplemental oxygen (Z99.81) Active confirmed Problem Female urinary stress incontinence (27378118) DIVYA (stress urinary incontinence, female) (N39.3) Active confirmed Problem Urge urinary incontinence (46765472) Urge urinary incontinence (N39.41) Active confirmed Problem History of cataract extraction (343011794) Cataract extraction status of left eye (Z98.42) Active confirmed Problem History of cataract extraction (954891434) Cataract extraction status of right eye (Z98.41) Active confirmed Problem History of nicotine dependence (78888765891574805 1) History of nicotine dependence (Z87.891) Active confirmed Problem Osteopenia (273064642) Osteopenia, unspecified location (M85.80) Active confirmed Problem Neurogenic claudication (666945957) Spinal stenosis of lumbar region with neurogenic claudication (M48.062) Active confirmed Problem Mild dementia (disorder) (727383879095110) Mild dementia without behavioral disturbance, psychotic disturbance, mood disturbance, or anxiety, unspecified dementia type (F03.A0) Active confirmed Problem Uncomplicated moderate persistent asthma (842810651) Moderate persistent asthma without complication (J45.40) Active confirmed Problem Personal history of primary malignant neoplasm of breast (811380666) History of breast cancer (Z85.3) Active confirmed Problem Mild recurrent major depression (77969526) Mild episode of recurrent major depressive disorder (F33.0) Active confirmed Problem At risk for falls (583978612) At risk for falls (Z91.81) Active confirmed Problem Obstructive sleep apnea syndrome (41134146) GENESIS (obstructive sleep apnea) (G47.33) Active confirmed Problem COPD - Chronic obstructive pulmonary disease (32831276) Chronic obstructive pulmonary disease, unspecified COPD type (J44.9) Active confirmed RPM, CCM Problem Vertigo (510931448) Vertigo (R42) Active confirmed Problem Insomnia (007307890) Insomnia, unspecified type (G47.00) Active confirmed Problem Gastroesophageal reflux disease (523695939) Gastroesophageal reflux disease, unspecified whether esophagitis present (K21.9) Active confirmed Problem Iron deficiency anemia (14415567) Iron deficiency anemia, unspecified iron deficiency anemia type (D50.9) Active confirmed Problem Hyperlipidaemia (28109399) Hyperlipidemia, unspecified hyperlipidemia type (E78.5) Active confirmed Problem Allergy status t o other antibiotic agents (Z88.1) Active confirmed Problem Postprocedural states (503200388) Other specified postprocedural states (Z98.890) Active confirmed Problem Environmental allergy (173478819) Environmental allergies (Z91.09) Active confirmed Problem Hysterectomy (550450907) Acquired absence of both cervix and uterus (Z90.710) Active confirmed Problem History of excision of intestinal structure (331179173) Acquired absence of other specified parts of digestive tract (Z90.49) Active confirmed Problem Allergy status t o other anti-infective agents status (Z88.3) Active confirmed Problem Allergy to penicillin (41757002) Allergy status to penicillin (Z88.0) Active confirmed Problem Adverse reaction caused by drug (33219010) Adverse effect of antineoplastic and immunosuppressive drugs, initial encounter (T45.1X5A) Active confirmed Problem Overactive bladder (039487513) Overactive bladder (N32.81) Active confirmed Problem Fibromyalgia (614418249) Fibromyalgia (M79.7) Active confirmed Problem Sciatica (67266172) Lumbago with sciatica, left side (M54.42) Active confirmed Problem Sciatica (17594770) Lumbago with sciatica, right side (M54.41) Active confirmed Problem Left side sciatica (248792525012004) Sciatica, left side (M54.32) Active confirmed Problem Right side sciatica (405258311782792) Sciatica, right side (M54.31) Active confirmed Problem Cervicalgia (35500265) Cervicalgia (M54.2) Active confirmed Problem Long QT syndrome (9573706) Long QT syndrome (I45.81) Active confirmed Problem Chronic pain (22832113) Other chronic pain (G89.29) Active confirmed Problem 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 [address] [address] 06/27/2024 Jose D Chino [address] [address] 08/13/2024 Jose D Chino [address] [address] 08/18/2024 JONELLE WHALEN Chronic obstructive pulmonary disease, unspecified COPD type J44.9 ; Dependence on continuous supplemental oxygen Z99.81 ; Mild episode of recurrent major depressive disorder F33.0 ; Iron deficiency anemia, unspecified iron deficiency anemia type D50.9 ; Hyperlipidemia, unspecified hyperlipidemia type E78.5 ; Gastroesophageal reflux disease, unspecified whether esophagitis present K21.9 ; Insomnia, unspecified type G47.00 ; Overactive bladder N32.81 ; Environmental allergies Z91.09 ; At risk for falls Z91.81 ; Sciatica, right side M54.31 ; Sciatica, left side M54.32 ; Cervicalgia M54.2 ; Other chronic pain G89.29 ; History of nicotine dependence Z87.891 ; Drug-induced polyneuropathy G62.0 ; Fibromyalgia M79.7 ; Vertigo R42 ; Mild dementia without behavioral disturbance, psychotic disturbance, mood disturbance, or anxiety, unspecified dementia type F03.A0 ; Osteopenia, unspecified location M85.80 ; Urge urinary incontinence N39.41 ; Primary osteoarthritis involving multiple joints M15.0 ; Chronic hypoxic respiratory failure J96.11 ; Spinal stenosis of lumbar region with neurogenic claudication M48.062 ; Lumbago with sciatica, right side M54.41 ; Lumbago with sciatica, left side M54.42 ; DIVYA (stress urinary incontinence, female) N39.3 and Moderate persistent asthma without complication J45.40 - [facility] [address] [address] 08/18/2024 Olivia Hussein [facility] [address] [address] 10/08/2024 Olivia Pullatisha - [place] - [facility] [address] [place] [address] 11/07/2024 Olivia Pulous [place] - [facility] [address] [place] [address] 12/23/2024 Mallory Loyola - [place] - [facility] [address] [place] [address] 01/27/2025 JONELLE WHALEN - [place] - [facility] [address] [place] [address] 02/26/2025 Jin Ferrer - [place] - [facility] [address] [place] [address] 03/31/2025 Olivia Hussein - [place] - [facility] [address] [place] [address] 06/13/2024 Tasze Ramiress - [place] - [facility] [address] [place] [address] 06/27/2024 Tashnie Chino - [place] - [facility] [address] [place] [address] 06/28/2024 Tashnie Chino - [place] - [facility] [address] [place] [address] 06/29/2024 Tasze Ramiress - [place] - [facility] [address] [place] [address] 07/29/2024 Tashnie Chino - [place] - [facility] [address] [place] [address] 08/14/2024 Tasze Ramiress - [place] - [facility] [address] [place] [address] 08/15/2024 Tashnie Chino - [place] - [facility] [address] [place] [address] 10/08/2024 Olivia Pulous - [facility] [address] [place] [address] 10/09/2024 Olivia Pulous - [place] - [facility] [address] [place] [address] 10/09/2024 Olivia Pulous - [place] - [facility] [address] [place] [address] 10/09/2024 Olivia Pulous - [place] - [facility] [address] [place] [address] 11/11/2024 Olivia Pulous - [place] - [facility] [address] [place] [address] 11/17/2024 Olivia Pulous - [place] - [facility] [address] [facility] [address] [place] [address] 12/23/2024 Mallory Loyola Assessments Encounter Date Diagnosis (ICD Code) Assessment Notes Treatment Notes Treatment Clinical Notes Section Notes 06/13/2024 Long QT syndrome (ICD-10 - I45.81) Member has stabilized. HR 94 and Spo2 94% on portable oxygen. I called the site operations manager's office and gave them an update on member's episode today. Inquired about the site operations manager's plan if they would want to start member on beta sharita before all the tests are done. (Member has 14 day holter monitor scheduled on 06/17/2024 and nuclear stress test scheduled on 07/14/2024.) Clinical team to fax over RPM data to the site operations manager's office. Requested site operations manager's progress note to be faxed to us. Members are advised to call our 08/01 nursing phone line with any new/worsening or changing symptoms. Follow up with PCP next week to discuss Donozeipil and Duloxetine as they could potentially cause long QT and serotonin syndrome. Red flags reviewed and when to call 911 - Continued palpitations, lightheadedness , dizziness, syncope, shortness of breath, wheezing, chest Pain, oxygen saturation less than 92%, Severe pain, lethargy, intractable vomiting/diarrh ea, one sided weakness/facial droop/slurring words. Member verbalized understanding of plan. 08/18/2024 Chronic obstructive pulmonary disease, unspecified COPD type (ICD-10 - J44.9) RPM, CCM Controlled Advised to avoid passive smoke exposure. Wears supplemental O2 2L at night Advised to minimize exposure to factors that cause exacerbation of symptoms. c/w current medications F/u w/ Pulm as directe Seek emergent care for: Chest pain, respiratory distress, severe wheezing, lightheadedness Call PCP if continued shortness of breath despite inhaler use, or new respiratory symptoms. Member prognosis related to the multiple diagnoses fair. 08/18/2024 Dependence on continuous supplemental oxygen (ICD-10 - Z99.81) Member prognos is related to the multiple diagnoses fair. 08/18/2024 Mild episode of recurrent major depressive disorder (ICD-10 - F33.0) Controlled C/w current medicaitons, Sees Psych q3 mo and therapist weekly Seek emergent care for: for suicidal ideation or thoughts of self harm. Member prognosis related to the multiple diagnoses fair. 08/18/2024 Iron deficiency anemia, unspecified iron deficiency anemia type (ICD-10 - D50.9) Controlled F/u w/ PCP for labs Patient will continue current medications as listed above in verified medication list and continue care with prescribing provider Member prognosis related to the multiple diagnoses fair. 08/18/2024 Hyperlipidemia, unspecified hyperlipidemia type (ICD-10 - E78.5) Controlled F/u w/ PCP for labs Patient will continue current medications as listed above in verified medication list and continue care with prescribing provider Member prognosis related to the multiple diagnoses fair. 08/18/2024 Gastroesophageal reflux disease, unspecified whether esophagitis present (ICD-10 - K21.9) Controlled Patient will continue current medications as listed above in verified medication list and continue care with prescribing provider Member prognosis related to the multiple diagnoses fair. 08/18/2024 Insomnia, unspecified type (ICD-10 - G47.00) Not controlled Has been on seroquel for 4 weeks, prescribed by psych. We reviewed may take 6-8ks for medication to take effect. F/u w/ PCP/psych as directed Member prognosis related to the multiple diagnoses fair. 08/18/2024 Overactive bladder (ICD-10 - N32.81) Controlled Patient will continue current medications as listed above in verified medication list and continue care with prescribing provider Member prognosis related to the multiple diagnoses fair. 08/18/2024 Environmental allergies (ICD-10 - Z91.09) Controlled Patient will continue current medications as listed above in verified medication list and continue care with prescribing provider Member prognosis related to the multiple diagnoses fair. 08/18/2024 At risk for falls (ICD-10 - Z91.81) Fall risk precautions reviewed: Including wearing closed toe shoes with supportive pipe stress engineer, removing rugs from walkways in home, turning lights on at night when waking to use bathroom, use of assistive devices. Declined additional DME needs Member prognosis related to the multiple diagnoses fair. 08/18/2024 Sciatica, right side (ICD-10 - M54.31) Controlled Fall risk precautions reviewed: Including wearing closed toe shoes with supportive pipe stress engineer, removing rugs from walkways in home, turning lights on at night when waking to use bathroom, use of assistive devices. Declined additional DME needs C/w current medications as prescribed F/u PCP/specialist as directed Member prognosis related to the multiple diagnoses fair. 08/18/2024 Sciatica, left side (ICD-10 - M54.32) Controlled Fall risk precautions reviewed: Including wearing closed toe shoes with supportive pipe stress engineer, removing rugs from walkways in home, turning lights on at night when waking to use bathroom, use of assistive devices. Declined additional DME needs C/w current medications as prescribed F/u PCP/specialist as directed Member prognosis related to the multiple diagnoses fair. 08/18/2024 Cervicalgia (ICD-10 - M54.2) Controlled Fall risk precautions reviewed: Including wearing closed toe shoes with supportive pipe stress engineer, removing rugs from walkways in home, turning lights on at night when waking to use bathroom, use of assistive devices. Declined additional DME needs C/w current medications as prescribed F/u PCP/specialist as directed Member prognosis related to the multiple diagnoses fair. 08/18/2024 Other chronic pain (ICD-10 - G89.29) Controlled Fall risk precautions reviewed: Including wearing closed toe shoes with supportive pipe stress engineer, removing rugs from walkways in home, turning lights on at night when waking to use bathroom, use of assistive devices. Declined additional DME needs C/w current medications as prescribed F/u PCP/specialist as directed Member prognosis related to the multiple diagnoses fair. 08/18/2024 History of nicotine dependence (ICD-10 - Z87.891) Member prognosis related to the multiple diagnoses fair. 08/18/2024 Drug-induced polyneuropathy (ICD-10 - G62.0) CCM Controlled Fall risk precautions reviewed: Including wearing closed toe shoes with supportive pipe stress engineer, removing rugs from walkways in home, turning lights on at night when waking to use bathroom, use of assistive devices. Declined additional DME needs C/w current medications as prescribed F/u PCP/specialist as directed Member prognosis related to the multiple diagnoses fair. 08/18/2024 Fibromyalgia (ICD-10 - M79.7) Controlled Fall risk precautions reviewed: Including wearing closed toe shoes with supportive pipe stress engineer, removing rugs from walkways in home, turning lights on at night when waking to use bathroom, use of assistive devices. Declined additional DME needs C/w current medications as prescribed F/u PCP/specialist as directed Member prognosis related to the multiple diagnoses fair. 08/18/2024 Vertigo (ICD-10 - R42) Controlled Fall risk precautions reviewed: Including wearing closed toe shoes with supportive pipe stress engineer, removing rugs from walkways in home, turning lights on at night when waking to use bathroom, use of assistive devices. Declined additional DME needs C/w current medications as prescribed F/u PCP/specialist as directed Member prognosis related to the multiple diagnoses fair. 08/18/2024 Mild dementia without behavioral disturbance, psychotic disturbance, mood disturbance, or anxiety, unspecified dementia type (ICD-10 - F03.A0) Controlled C/w current medications as prescribed F/u PCP/specialist as directed Member prognosis related to the multiple diagnoses fair. 08/18/2024 Osteopenia, unspecified location (ICD-10 - M85.80) Controlled F/u PCP/specialist as directed Member prognosis related to the multiple diagnoses fair. 08/18/2024 Urge urinary incontinence (ICD-10 - N39.41) Controlled C/w current medications as prescribed F/u PCP/specialist as directed Member prognosis related to the multiple diagnoses fair. 08/18/2024 Primary osteoarthritis involving multiple joints (ICD-10 - M15.0) Controlled Fall risk precautions reviewed: Including wearing closed toe shoes with supportive pipe stress engineer, removing rugs from walkways in home, turning lights on at night when waking to use bathroom, use of assistive devices. Declined additional DME needs C/w current medications as prescribed F/u PCP/specialist as directed Member prognosis related to the multiple diagnoses fair. 08/18/2024 Chronic hypoxic respiratory failure (ICD-10 - J96.11) Controlled Dx COPD C/w current medicaitons, c/w use of supplemental O2 as prescribed F/u w/ PCP /Pulm as directed Member prognosis related to the multiple diagnoses fair. 08/18/2024 Spinal stenosis of lumbar region with neurogenic claudication (ICD-10 - M48.062) Controlled Fall risk precautions reviewed: Including wearing closed toe shoes with supportive pipe stress engineer, removing rugs from walkways in home, turning lights on at night when waking to use bathroom, use of assistive devices. Declined additional DME needs C/w current medications as prescribed F/u PCP/specialist as directed Member prognosis related to the multiple diagnoses fair. 08/18/2024 Lumbago with sciatica, right side (ICD-10 - M54.41) Controlled Fall risk precautions reviewed: Including wearing closed toe shoes with supportive pipe stress engineer, removing rugs from walkways in home, turning lights on at night when waking to use bathroom, use of assistive devices. Declined additional DME needs C/w current medications as prescribed F/u PCP/specialist as directed Member prognosis related to the multiple diagnoses fair. 08/18/2024 Lumbago with sciatica, left side (ICD-10 - M54.42) Controlled Fall risk precautions reviewed: Including wearing closed toe shoes with supportive pipe stress engineer, removing rugs from walkways in home, turning lights on at night when waking to use bathroom, use of assistive devices. Declined additional DME needs C/w current medications as prescribed F/u PCP/specialist as directed Member prognosis related to the multiple diagnoses fair. 08/18/2024 DIVYA (stress urinary incontinence, female) (ICD-10 - N39.3) Controlled C/w current medications as prescribed F/u PCP/specialist as directed Member prognosis related to the multiple diagnoses fair. 08/18/2024 Moderate persistent asthma without complication (ICD-10 - J45.40) Controlled C/w current medications as prescribed F/u PCP/specialist as directed Member prognosis related to the multiple diagnoses fair. 08/13/2024 Member returned call for CCM Monthly. Confirmed member name, birthdate, and state. CCM program touchpoint briefly described. Member was pleasant, but had time constraints, as she had an appointment to attend 20 minutes later. Therefore, health dance coach was only able to have a brief discussion regarding one of member's medications, then the biannual was scheduled, and then member needed to go. She reported no acute events since last contact. She stated that she has been doing ok. Member immediately reported that some days she is jittery/shaky; today the shakiness has been strong. Member explained that she always reacts to inhalers this way, and was prescribed a new inhaler that has been causing jitteriness. Health dance coach was unable to verify if this particular inhaler was already listed in member's chart, as member stated that she had limited time to speak. Health dance coach acknowledged member's time constraints and asked if member has spoken to her doctor about her concerns - member said that she has not, since it is a new inhaler, and her next appointment with her PCP is in September. Health dance coach encouraged member to contact her provider, or our 08/01 clinical support line, if she would like to speak to someone about her concerns. Member mentioned that sometimes her legs will be so shaky that they give out - health dance coach asked if member is normally able to feel the sensation coming on so that she can go sit down or lay down; she said yes. Member stated that she is taking it easy today. Health dance coach affirmed that this is a good idea, and encouraged member to relax. Biannual scheduled for 3/3 at 4pm. After biannual was scheduled, member needed to go. She was thankful for the call and the support. 08/01 line reinforced. *After the call, health dance coach added note to biannual regarding member's concern with shakiness. 10/08/2024 Member co ntacted for CCM Monthly. Health dance coach confirmed member name and birthdate. CCM program touchpoint briefly described. Member has no changes in condition or concerns to report. Member had no acute events. Discussion on members current health status. Member states that she is eating 2 to 3 meals a day, and she sleeps well at times its on and off, but she uses her oxygen at 2L if her oxygen levels drop. The member does not like to check her vitals much because she finds that the call per RPM protocol are annoying. Health dance coach encouraged the member to at least start trying to check twice a week to get back into a good habit and to better manage her COPD. Member states that her allergies have been out of control since its getting warmer outside, but she is managing okay. Member is using her cane or rollator at all times. Health dance coach complimented member of habit this and encouraged continuation for best fall prevention. Member would like to focus on remaining hospital and fall free. Member has no upcoming appointments. CCM next program touchpoint briefly described. Member voiced understanding for the call and the support. 08/01 line reinforced. 02/26/2025 - Educated on 2 objectives based on the FISH PROTECTOR/RN Care Plan - Caregiver/Member voiced understanding for the call and the support. 08/01 line reinforced. 03/31/2025 - Educated on 2 objectives based on the FISH PROTECTOR/RN Care Plan The member reported experiencing significant pain and health issues, including high cholesterol and low folate levels, which will be addressed in her upcoming doctor's appointment next week. The health dance coach provided dietary advice, suggesting the inclusion of fortified cereals, fish, nuts, and seeds in the member's diet while considering her digestive issues and cholesterol medication. The health dance coach discussed the challenges the member faces in finding long-leaf spinach and suggested checking out food co-ops or online services like [employer] for better options. The member mentioned her need for a transfer shower chair due to difficulties with her current setup, and the health dance coach agreed to place an order for it, pending insurance coverage. The health dance coach noted that the member is overdue for a follow-up appointment with the nurse practitioner and will arrange for them to contact her to schedule a video appointment next week. - Member voiced understanding for the call and the support. 08/01 line reinforced. 06/27/2024 S: RN spoke with the member via [employer] [facility] to update their care plan. The member confirmed name and date of . B: 69 year old female with past medical history of COPD, osteoarthritis, and polyneuropathy. The member denies having any recent falls, ED visits, or hospitalizations . The member lives on her own and maintains her PERS device with her. The member receives [employer] meals and is receiving 20.75 hours of health aid service from Sunday through Fridays. The member stated that due to her insurance her homecare agency will switch to [facility] an yannick. The member will receive the same hours and they will provide the member with prepared meals. The member uses a rollator and intermittently switches to a cane. The member spoke with her PCP regarding medications interacting with each other and possibly cause serotonin syndrome and they stated to the member to continue to take medications as recommended and had no changes. The member is currently wearing a holter monitor until July 04, and then will have a nuclear stress test on July 14, 2024. The member will then follow up with her site operations manager on September 02, 2024. The member has an upcoming visit with her PCP on July 17, 2024. A: The member stated that her latest lipid panel was within range and avoids fried and greasy foods. The member denies having chest palpitations, chest discomfort, or light headedness. COPD: The member's current oxygen saturation is 91% and heart rate is 83. The member denies having COPD exacerbation symptoms. The member stated that she only has shortness of breath with activity and uses oxygen, 2L nasal cannula. The member switches her nasal cannulas monthly. The member maintains her rescue inhaler with her at all times. The member has oxygen tanks and is in the process with her PCP to receive a portable concentrator. The member stated that she quit smoking recently and is using nicotine patches. Osteoarthritis and polyneuropathy: The member states that the cold triggers nerve pain in her hands and feet. The member stated that she mostly experiences pain in her hips but it is relieved with movement. If the pain is not relieved the member takes tylenol and applies OTC voltaren gel with good relief. R: RN encouraged the member to continue to follow a low cholesterol diet. Educated on risks of having high cholesterol. Educated the member on COPD exacerbation symptoms, triggers to avoid, use of inhalers, avoiding large crowds, and maintaining good hygiene. Encouraged the member to maintain her rescue inhaler with her at all times and change nasal cannula tubing as directed. Educated on non pharmacological pain interventions. Encouraged the member to report if she begins to experience chest palpitations, chest discomfort, or light headedness. Educated the member on serotonin syndrome symptoms and to report if any symptoms arise. Reinforced fall safety interventions and DME use. Reinforced RPM adherence. Reinforced [place]'s 08/01 clinical line for any questions or concerns. 08/12/2024 Summary o f call goes here _. 11/07/2024 Johnson duplicate maker spoke with the member for a wellness call. .The member confirmed her name and date of as well as current state B. The member is a 69 yo residing in apartment, and is self reporting.She sees her PCP every 3 months. She also sees the site operations manager every 6 months.She has program aide group work 9 hours/week - 3 hours on M, W, F. She asked for her health aide hours be reinstated at 20.75 hours that was decreased when she started M[employer] meals. She has made many calls without results. A.COPD-the member is O2 dependant at 2 liters.She has portable tanks and a concentrator. She has RPM for O2 sat but has been slacking-encoura ged to continue. She has to take frequent rest periods when doing any activity as o2 SAT drop. OA - the member reports she has used creams and topical patches for pain in her hips and back without effect.She has prescribed oxycodone 5mg which helps the pain.Encouraged to use warm/cool compresses in addition to Oxycodone. The member is in process of having bride for missing teeth.Ensured she had soft foods thru long weekend R. Encouraged to call clinical line with any increased use if rescue inhalers. Plan to call [facility] services on to inquire on NUCLEAR WORKER TECHNICIAN hours. Reviewed clinical line phone number to call with any concerns or changes. Plan Of Treatment Pending Test Test Name Order Date RPM Pulse Oximeter 02/22/2024 Insurance Providers Payer Name Payer Address Payer Phone Subscriber Number Group Number Insured Name Patient Relationship to Insured Coverage Start Date Coverage End Date [facility] [address] [address] [place] [phone] [id number] Xin Quintanilla Self - patient is the insured 2 Medicaid of [facility] [address] [place] [address] [id number] Xin Quintanilla Self - patient is the insured Medicare of [facility] [address] [place] [phone] [id number] Xin Quintanilla Self - patient is the insured Medical (General) History Medical History History ICD Code Mild episode of recurrent major depressi ve disorder F33.0 Iron deficiency anemia, unspecified iron deficiency anemia type D50.9 Hyperlipidemia, unspecified hyperlipidem ia type E78.5 Gastroesophageal reflux disease, unspeci fied whether esophagitis present K21.9 Dizziness R42 Asthma, unspecified asthma s everity, unspecified whether complicated, unspecified whether persistent J45.909 Chronic obstructive pulmonary disease, u nspecified COPD type J44.9 GENESIS (obstructive sleep apnea) G47.33 Insomnia, unspecified type G47.00 Constipation, unspecified constipation t ype K59.00 Overactive bladder N32.81 Environmental allergies Z91.09 At risk for falls Z91.81 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 11 Spinal stenosis of lumbar region with ne urogenic claudication M48.062 Other chronic pain G89.29 Lumbago with sciatica, right side M54.41 Lumbago with sciatica, left side M54.42 Intermittent palpitations R00.2 Long QT syndrome I45.81 Critical illness polyneuropathy G62.81 Surgical History Surgery Date(Month/Year) hysterectomy left lumpectomy (breast cancer) 2006 right lumpectomy appendectomy right toe fx repair bladder sling placement craniectomy for Meningioma 2014 bilateral cataract extraction Hospitalization History Reason Date(Month/Year) no recent hospitalizations ([id number])
--- OUTSIDE RECORDS SUMMARY | 2025-06-02 18:46 | XMS_ITS | Encounter Summary ---
Author Organization [employer] Address [address] [place] [address] [address] [place] [address] Care Team Providers Care Cane Flume Watchman Name Role Phone Gisela Pulido Primary Care Provider Unavailable Ivelisse Chen Unavailable Unavailable Ameena Tellez DO Primary Care Provider Encounter Details Date Type Department Care Team (Latest Contact Info) Description 04/19/2020 Abstract [facility] CONVERSIONS Dental, Provider, DDS Social [...] Description 07/13/2025 3:15 PM EST Office Visit [facility] MEDICAL [address] [place] [address] Ameena Tellez DO [address] [place] [address] documented as of this encounter Visit Diagnoses Not on filedocumented in this encounter Care Teams Cane Flume Watchman Relationship Specialty Start Date End Date Gisela Pulido FNP PCP - General Family Medicine 05/26/22 02/06/24 Ameena Tellez DO [address] [place] [address] PCP - General Family Medicine 02/07/24 Ivelisse Chen Community Health Worker 10/23/22 documented as of this encounter
--- OUTSIDE RECORDS SUMMARY | 2025-06-02 18:46 | XMS_ITS | Encounter Summary ---
Author Organization [employer] Address [address] [place] [address] [address] [address] Care Team Providers Care Kier Operator Name Role Phone Gisela Pulido Primary Care Provider Unavailable Ivelisse Chen Unavailable Unavailable Ameena Tellez DO Primary Care Provider [phone] Encounter Details Date Type Department Care Team (Latest Contact Info) Description 08/13/2019 Abstract [facility] CONVERSIONS Dental, Provider, DDS Social [...] 07/13/2025 3:15 PM EST Office Visit [facility] MED[facility] [address] [place] [address] Ameena Tellez DO [address] [place] [address] documented as of this encounter Visit Diagnoses Not on filedocumented in this encounter Care Teams Kier Operator Relationship Specialty Start Date End Date Gisela Pulido FNP PCP - General Family Medicine 05/26/22 02/06/24 Ameena Tellez DO [address] [place] [address] PCP - General Family Medicine 02/07/24 Ivelisse Chen Community Health Worker 10/23/22 documented as of this encounter
--- OUTSIDE RECORDS SUMMARY | 2025-06-02 18:46 | XMS_ITS | Encounter Summary ---
Author Organization [employer] Address [address] [place] [address] Care Team Providers Care Dairy Quality Assurance Officer Name Role Phone Gisela Pulido Primary Care Provider Unavailable Ivelisse Chen Unavailable Unavailable Ameena Tellez DO Primary Care Provider [phone] Encounter Details Date Type Department Care Team (Latest Contact Info) Description 10/20/2020 Abstract [facility] CONVERSIONS Dental, Provider, DDS Social [...] Description 07/13/2025 3:15 PM EST Office Visit [facility] MED[facility] [address] [place] [address] Ameena Tellez DO [address] [place] [address] documented as of this encounter Visit Diagnoses Not on filedocumented in this encounter Care Teams Dairy Quality Assurance Officer Relationship Specialty Start Date End Date Gisela Pulido FNP PCP - General Family Medicine 05/26/22 02/06/24 Ameena Tellez DO [address] [place] [address] PCP - General Family Medicine 02/07/24 Ivelisse Chen Community Health Worker 10/23/22 documented as of this encounter
--- OUTSIDE RECORDS SUMMARY | 2025-06-02 18:46 | XMS_ITS | Encounter Summary ---
Author Organization [employer] Address [address] [place] [address] Care Team Providers Care Blade Grinder Name Role Phone April Ivelisse Unavailable Unavailable Ameena Tellez DO Primary Care Provider [phone] Encounter Details Date Type Department Care Team (Late st Contact Info) Description 02/12/2025 Orders Only [facility] [address] [place] [address] Pcp, [facility] Unassigned Social History Tobacco Use Types Packs/Day Years [...] 07/13/2025 3:15 PM EST Office Visit [facility] [address] [place] [address] Ameena Tellez DO [address] [place] [address] documented as of this encounter Procedures Procedure Name Priority Date/Time Associated Diagnosis Comments MRI BRAIN W WO CONTRAST Routine 01/24/2023 2:58 PM EDT documented in this encounter Results * MRI BRAIN W WO CONTRAST (01/24/2023 2:58 PM EDT) Anatomical Region Laterality Modality Magnetic Resonan ce [facility] Unassigned Pcp IMG MRI PROCEDURES Final Result documented in this encounter Visit Diagnoses Not on filedocumented in this encounter Additional Health Concerns Assessment Noted Time PHQ-9 Depression Total Score: 0 01/14/20 25 4:04 PM EDT documented as of this encounter Care Teams Blade Grinder Relationship Specialty Start Date End Date Ameena Tellez DO [address] [place] [address] PCP - General Family Medicine 02/07/24 Ivelisse Chen Community Health Worker 10/23/22 documented as of this encounter
--- OUTSIDE RECORDS SUMMARY | 2025-06-02 18:46 | XMS_ITS | Encounter Summary ---
Author Organization [employer] Address [address] [place] [address] Care Team Providers Care Senior Clinical Research Scientist Name Role Phone Helen Chenline Unavailable Unavailable Ameena Tellez DO Primary Care Provider [phone] Reason for Visit * Reason Comments Med Refill Encounter Details Date Type Department Care Team (Late st Contact Info) Description 05/27/2025 Refill [place] [facility] MED[facility] [address] [place] [address] Ameena Tellez DO [address] [place] [address] Chronic bilateral low back pain with right-sided sciatica Social History Tobacco Use Types Packs/Day Years [...] * Telephone Encounter - JADE [place] - 05/27/2025 3:52 PM EST [facility] Last fill Date: 05/15/25 (3 day supply) [facility] sold Date: 05/15/25 (3 day supply) Last OV: 04/10/25 Telehealth [facility] Next OV: 07/13/25 ARK Last UTOX: Never done DUE CSA Date: Never signed DUE DNF Date: documented in this encounter Plan of Treatment Upcoming Encounters Date Type Department Care Team (Late st Contact Info) Description 07/13/2025 3:15 PM EST Office Visit [facility] MED[facility] [address] [place] [address] Ameena Tellez DO [address] [place] [address] documented as of this encounter Visit Diagnoses Diagnosis Chronic bilateral low back pain with right-sided sciatica documented in this encounter Additional Health Concerns Assessment Noted Time PHQ-9 Depression Total Score: 0 01/14/20 25 4:04 PM EDT documented as of this encounter Care Teams Senior Clinical Research Scientist Relationship Specialty Start Date End Date Ameena Tellez DO [address] [place] [address] PCP - General Family Medicine 02/07/24 Ivelisse Chen Community Health Worker 10/23/22 documented as of this encounter
--- OUTSIDE RECORDS SUMMARY | 2025-06-02 18:46 | XMS_ITS | Encounter Summary ---
Author Organization [employer] Address [address] [place] [address] Care Team Providers Care Owner/Operator Name Role Phone Helen Chenline Unavailable Unavailable Ameena Tellez DO Primary Care Provider [phone] Encounter Details Date Type Department Care Team (Late st Contact Info) Description 07/25/2024 Orders Only [facility] MEDICAL [address] [place] [address] ProviderLaura MD Social History Tobacco Use Types Packs/Day Years [...] 07/13/2025 3:15 PM EST Office Visit [facility] MED[facility] [address] [place] [address] Ameena Tellez DO [address] [place] [address] documented as of this encounter Procedures Procedure Name Priority Date/Time Associated Diagnosis Comments NM PET MYOCARDIAL PERFUSION MULTIPLE Routine 07/14/2024 12:35 PM EST documented in this encounter Results * NM PET myocardial perfusion multiple (07/14/2024 12:35 PM EST) Anatomical Region Laterality Modality Heart Nuclear Medicine us Historical Provider MD INEZ JOHNSON PROCEDURES Final R esult documented in this encounter Visit Diagnoses Not on filedocumented in this encounter Care Teams Owner/Operator Relationship Specialty Start Date End Date Ameena Tellez DO [address] [place] [address] PCP - General Family Medicine 02/07/24 Ivelisse Chen Community Health Worker 10/23/22 documented as of this encounter
--- OUTSIDE RECORDS SUMMARY | 2025-06-02 18:46 | XMS_ITS | Encounter Summary ---
Author Organization [employer] Address [address] [place] [address] Care Team Providers Care Subway Car Repairer Name Role Phone Helen Chenline Unavailable Unavailable Ameena Tellez DO Primary Care Provider [phone] Encounter Details Date Type Department Care Team (Late st Contact Info) Description 07/18/2024 Orders Only [facility] [address] [place] [address] Ameena Tellez DO [address] [place] [address] Social History Tobacco Use Types Packs/Day Years [...] Description 07/13/2025 3:15 PM EST Office Visit [facility] [address] [place] [address] Ameena Tellez, [address] [place] [address] documented as of this encounter Procedures Procedure Name Priority Date/Time Associated Diagnosis Comments STRESS TEST WITH MYOCARDIAL PERFUSION Routine 07/14/2024 8:58 AM EST documented in this encounter Results * Stress test with myocardial perfusion (07/14/2024 8:58 AM EST) Ameena Tellez DO CV STRESS PROCEDURES Final Res ult documented in this encounter Visit Diagnoses Not on filedocumented in this encounter Care Teams Subway Car Repairer Relationship Specialty Start Date End Date Ameena Tellez DO [address] [place] [address] PCP - General Family Medicine 02/07/24 Ivelisse Chen Community Health Worker 10/23/22 documented as of this encounter
--- OUTSIDE RECORDS SUMMARY | 2025-06-02 18:46 | XMS_ITS | Encounter Summary ---
Author Organization [employer] Address [address] [place] [address] 7 [place] [address] Care Team Providers Care Enamel Cracker Name Role Phone Gisela Pulido Primary Care Provider Unavailable Ivelisse Chen Unavailable Unavailable Ameena Tellez DO Primary Care Provider [phone] Encounter Details Date Type Department Care Team (Latest Contact Info) Description 01/29/2019 Abstract [facility] CONVERSIONS Dental, Provider, DDS Social [...] Description 07/13/2025 3:15 PM EST Office Visit [facility] MEDICAL [address] [place] [address] Ameena Tellez DO [address] [place] [address] documented as of this encounter Visit Diagnoses Not on filedocumented in this encounter Care Teams Enamel Cracker Relationship Specialty Start Date End Date Gisela Pulido FNP PCP - General Family Medicine 05/26/22 02/06/24 Ameena Tellez DO [address] [place] [address] PCP - General Family Medicine 02/07/24 Ivelisse Chen Community Health Worker 10/23/22 documented as of this encounter
--- OUTSIDE RECORDS SUMMARY | 2025-06-02 18:46 | XMS_ITS | Clinical Summary ---
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 are present. EXTRACRANIAL SOFT TISSUES: There have been lens replacementsbilaterally. Paranasal sinuses are unremarkable. Trace mastoid effusions are seen. BONES: Marrow signal is preserved. IMPRESSION: No evidence of tumor recurrence or other acute abnormality. WSN: [id number] Ordering Physician: Ameena Tellez Dictated By: Ame Jones MD Dictated Date/Time: 03/09/25 2:48 pm Reviewed By: Ame Jones MD Signed By: Ame Jones MD Signed Date/Time: 03/09/25 2:48 pm Transcribed By: MAGEN Transcribed Date/Time: 03/09/25 2:44 pm Ameena Tellez DO IMG MRI PROCEDURES Final Resul t * Hepatits C Antibody w/Reflex HCV Quant PCR and Genotyping (01/31/2023 3:25 PM EDT) Hepatitis C Virus Ab, Serum NEGATIVE (NEG) [facility] Comment: Reference range: Negative This test was performed on the [employer] immunoassay system. Testing performed or reported by [facility], a Service of [facility], [facility] [place] [address] Robert Corrales MD, Load Checker [facility]# [id number] 01/31/2023 3:25 PM EDT 01/31/2023 3:26 PM EDT Gisela Pulido RUBBER TESTER LAB BLOOD ORDERABLES F inal Result [facility] [address] [place] [address] * Colonoscopy (07/29/2021) Colonoscopy 5 year recall Historical Provider HEALTH MAINTENANCE Final Result * Pap Smear (09/08/2014 12:00 AM EDT) Swab Historical Provider LAB CYTOLOGY ORDERABLES F inal Result from Last 3 Months or Most Recently Relevant to Health Maintenance Insurance [facility] OPTIONS (O D-SNP) [facility] [employer] [facility] OPTIONS (O D-SNP) Advance Directives Documents on File Type Date Recorded Patient Vocational Nurse Lvn Expl anation Advance Directives and Livin g Will 04/06/2024 4:42 PM Living Will Care Teams Flavor Extractor Relationship Specialty Start Date End Date Ameena Tellez DO [address] [place] [id number] PCP - General Family Medicine 02/07/24 Ivelisse Chen Community Health Worker 10/23/22
== END 2025-06-02 15:04 | disposition home or self-care (01) ==
LOC: HO.HSM 14:28
PROVIDERS: PCP Internal Medicine Medical Oncology; Visit Provider Psychiatry & Neurology Neurology
DX: D32.9 Benign neoplasm of meninges, unspecified (principal); R41.89 Other symptoms and signs involving cognitive functions and awareness
CPT/HCPCS: 99204

== ENCOUNTER → 2025-06-02 14:27 | Outpatient (BNVA) | payer OTHER, SELFPAY | PROVIDERS: PCP Internal Medicine Medical Oncology; Visit Provider Psychiatry & Neurology Neurology | DX: D32.0 Benign neoplasm of cerebral meninges (principal); F09 Unspecified mental disorder due to known physiological condition | CPT/HCPCS: 99202 ==